=== PATIENT | female | born 1975 | race Caucasian/White ===

== ENCOUNTER → 2016-05-30 | Outpatient (REF) | payer OTHER | LOC: M LAB REF 12:21 | PROVIDERS: ATTEND Physician Assistant | DX: J02.9 Acute pharyngitis, unspecified (principal) ==

== ENCOUNTER → 2016-08-25 | Outpatient (REF) | payer OTHER ==
[2016-08-25 17:55] LABS: AMYLASE 28 U/L (25-115)
[2016-08-25 18:07] LABS: IMMUNOGLOBULIN A < 7.8 MG/DL (70-400)
[2016-08-30 00:06] LABS: ENDOMYSIAL ABY IgA Negative (Negative)
== END ==
LOC: M LAB REF 16:33
PROVIDERS: ATTEND Nurse Practitioner Family
DX: R19.7 Diarrhea, unspecified (principal)

== ENCOUNTER 2017-01-30 09:14 | Day surgery (SDC) | payer BC, OTHER ==
[~2017-01-30] VITALS: Ht 170.2 cm; Wt 93.9 kg
[~2017-01-30 09:14] MED LIST: BUPR150T3 PO; VITA1CAP40 PO
[2017-01-30] MEDS ORDERED: NS 1,000 ML IV ONE (09:30)
--- NOTE | 2017-01-30 10:52 | ROOR ---
Patient Name: Dina Tierney Procedure Date: 01/30/2017 10:22 AM Date of : 1975 Age: 41 Room: [facility] Gender: Female Note Status: Finalized Procedure: Total Colonoscopy to Cecum + ileoscopy Indications: Rectal bleeding, Change in bowel habits Providers: Noe Villalta MD Referring MD: HARRY PALM NP Requesting Provider: Medicines: Monitored Anesthesia Care Complications: No immediate complications. Procedure: Pre-Anesthesia Assessment: - The heart rate, respiratory rate, oxygen saturations, blood pressure, adequacy of pulmonary ventilation, and response to care were monitored throughout the procedure. The Colonoscope was introduced through the anus and advanced to the cecum, identified by appendiceal orifice and ileocecal valve. The colonoscopy was performed without difficulty. The patient tolerated the procedure well. The quality of the bowel preparation was excellent. Findings: The perianal and digital rectal examinations were normal. Non-bleeding internal hemorrhoids were found during retroflexion. The hemorrhoids were small and Grade I (internal hemorrhoids that do not prolapse). No other significant abnormalities were identified in a careful examination of the remainder of the colon. The exam was otherwise without abnormality on direct and retroflexion views. The terminal ileum appeared normal. Impression: - Non-bleeding internal hemorrhoids. - The examination was otherwise normal on direct and retroflexion views. - The examined portion of the ileum was normal. - No specimens collected. - The exam was otherwise normal to the cecum. Recommendation: - Patient has a contact number available for emergencies. The signs and symptoms of potential delayed complications were discussed with the patient. Return to normal activities tomorrow. Written discharge instructions were provided to the patient. - High fiber diet. - Discharge patient to home. - Continue present medications. - Repeat colonoscopy in 10 years for screening purposes. - Return to referring physician. - The findings and recommendations were discussed with the patient's family. Noe Villalta MD Noe Villalta MD 01/30/2017 10:51:52 AM This report has been signed electronically. Number of Addenda: 0 Note Initiated On: 01/30/2017 10:22 AM Estimated Blood Loss: Estimated blood loss: none.
[2017-01-30] MEDS ORDERED: PROPOFOL 200 MG/20 ML VIAL As Ordered ONE ×2 (10:56→10:57)
[2017-01-30] MEDS ORDERED: LIDOCAINE 2% INJ 100 MG/5 ML SDV (FOR ANES.) As Ordered ONE (10:57)
[2017-01-30 11:10] VITALS: BP 121/75
== END 2017-01-30 11:15 | disposition home or self-care (01) ==
LOC: M OPP 09:14 → EDSTATUS 10:30 → M OPP 11:15
PROVIDERS: ATTEND Internal Medicine Gastroenterology
DX: R19.4 Change in bowel habit (principal); K64.0 First degree hemorrhoids; K62.5 Hemorrhage of anus and rectum; Z88.2 Allergy status to sulfonamides; Z79.899 Other long term (current) drug therapy

== ENCOUNTER → 2018-06-20 | Outpatient (REF) | payer OTHER ==
[~2018-06-20] MED LIST changes: -VITA1CAP40 PO; +VITA50005 PO
== END ==
LOC: M LAB REF 19:35
PROVIDERS: ATTEND Physician Assistant Medical
DX: R07.0 Pain in throat (principal)

== ENCOUNTER → 2018-06-20 | Outpatient (REF) | payer BC, OTHER ==
[2018-06-20 20:15] LABS: MONO REFLEX EBV COMP NEGATIVE (NEGATIVE)
[2018-06-20 20:18] LABS: BASO % 0.5 % (0.0-1.0); EOS # 0.2 10^3/uL (0.0-0.50); EOS % 2.9 % (0.0-3.0); HEMATOCRIT 35.4 % (36.0-47.0); HEMOGLOBIN 11.4 g/dl (12.0-15.5); LYMPH # 2.3 10^3/uL (1.5-4.5); LYMPH % 31.4 % (24.0-44.0); MEAN CORPUSCULAR HEMOGLOBIN 28.7 pg (27.0-33.0); MEAN CORPUSCULAR HGB CONC 32.2 g/dl (32.0-36.5); MEAN CORPUSCULAR VOLUME 89.2 fl (80.0-96.0); MONO # 0.5 10^3/uL (0.0-0.8); MONO % 7.1 % (0.0-5.0); NEUTROPHILS # 4.2 10^3/uL (1.8-7.7); NEUTROPHILS % 57.8 % (36.0-66.0); PLATELET COUNT, AUTOMATED 276 10^3/uL (150-450); RED BLOOD COUNT 3.97 10^6/uL (4.00-5.40); WHITE BLOOD COUNT 7.3 10^3/uL (4.0-10.0)
[2018-06-23 00:06] LABS: EBV AB TO NUCLEAR ANTIGEN <18.0 U/mL (0.0-17.9); EBV VIRAL CAPSID AG IgM <36.0 U/mL (0.0-35.9)
== END ==
LOC: M LABDRWAD 19:30
PROVIDERS: ATTEND Physician Assistant Medical
DX: R07.0 Pain in throat (principal)

== ENCOUNTER 2019-04-20 21:52 | Observation (INO) | payer BC, OTHER ==
[~2019-04-20] VITALS: Ht 170.2 cm; Wt 105.5 kg
[2019-04-20] MEDS: FAMOTIDINE 20 MG TAB PO SCH (21:00)
[2019-04-20] MEDS ORDERED: IBUP-1022 PO (22:10)
[2019-04-20] MEDS ORDERED: ESCI10TA2 PO (22:10)
[2019-04-20] MEDS ORDERED: MORPHINE 4 MG/ML 1ML VIAL/SYRINGE (J2270) IV ONE (22:45)
[2019-04-20] MEDS ORDERED: NS 1,000 ML IV SCH (22:52)
[2019-04-20] MEDS ORDERED: METOCLOPRAMIDE INJ 10MG/2ML VIAL (J2765) IV ONE (23:00)
[2019-04-20] MEDS ORDERED: ASPIRIN 325 MG TAB PO ONE (23:00)
[2019-04-20 23:06] LABS: BASO # 0.1 10^3/uL (0.0-0.2); BASO % 0.6 % (0.0-1.0); EOS # 0.2 10^3/uL (0.0-0.5); HEMATOCRIT 35.3 % (36.0-47.0); HEMOGLOBIN 11.2 g/dl (12.0-15.5); LYMPH % 31.9 % (24.0-44.0); MEAN CORPUSCULAR HEMOGLOBIN 28.4 pg (27.0-33.0); MEAN CORPUSCULAR HGB CONC 31.7 g/dl (32.0-36.5); MEAN CORPUSCULAR VOLUME 89.6 fl (80.0-96.0); MONO # 0.5 10^3/uL (0.0-0.8); MONO % 5.7 % (0.0-5.0); NEUTROPHILS # 5.6 10^3/uL (1.5-8.5); NEUTROPHILS % 59.6 % (36.0-66.0); PLATELET COUNT, AUTOMATED 325 10^3/uL (150-450); RED BLOOD COUNT 3.94 10^6/uL (4.00-5.40); WHITE BLOOD COUNT 9.4 10^3/uL (4.0-10.0)
--- NOTE | 2019-04-20 23:16 | REPVR ---
PROCEDURE INFORMATION: Exam: CT Head Without Contrast Exam date and time: 04/20/2019 11:00 PM Age: 43 years old Clinical indication: Altered mental status/memory loss TECHNIQUE: Imaging protocol: Computed tomography of the head without contrast. Radiation optimization: All CT scans at this facility use at least one of these dose optimization techniques: automated exposure control; mA and/or kV adjustment per patient size (includes targeted exams where dose is matched to clinical indication); or iterative reconstruction. COMPARISON: No relevant prior studies available. FINDINGS: Brain: Normal. No hemorrhage. Unremarkable white matter. No mass effect. Ventricles: Normal. No ventriculomegaly. Bones/joints: Unremarkable. No acute fracture. Sinuses: Visualized sinuses are unremarkable. No fluid levels. Mastoid air cells: Visualized mastoid air cells are well aerated. Soft tissues: Unremarkable. IMPRESSION: No acute intracranial abnormality. Electronically signed by: Lamont Hollingsworth On 04/20/2019 23:15:59 PM
[2019-04-20 23:22] LABS: ACETAMINOPHEN LEVEL < 2.0 UG/ML (10.0-30.0); ALT/SGPT 13 U/L (12-78); BILIRUBIN,DIRECT 0.1 MG/DL (0.0-0.2); BILIRUBIN,TOTAL 0.1 MG/DL (0.2-1.0); BLOOD UREA NITROGEN 18 MG/DL (7-18); CALCIUM LEVEL 8.5 MG/DL (8.5-10.1); CARBON DIOXIDE LEVEL 28 MEQ/L (21-32); CHLORIDE LEVEL 103 MEQ/L (98-107); CK-MB VALUE MASS < 1.0 NG/ML (<3.6); CPK CREATINE PHOSPHOKINASE 94 U/L (26-192); CREATININE FOR GFR 0.82 MG/DL (0.55-1.30); ETHYL ALCOHOL (ETHANOL) < 0.003 % (0.000-0.010); GLOMERULAR FILTRATION RATE > 60.0 (>58); GLUCOSE, FASTING 95 MG/DL (70-100); MB/CK RELATIVE INDEX 1.06 (< OR =4); POTASSIUM SERUM 3.6 MEQ/L (3.5-5.1); SALICYLATE LEVEL < 1.7 MG/DL (5.0-30.0); SODIUM LEVEL 138 MEQ/L (136-145); TOTAL PROTEIN 7.5 GM/DL (6.4-8.2); TROPONIN I < 0.02 NG/ML (< 0.10)
[2019-04-21] MEDS ORDERED: FAMO20TA4 PO (00:18)
[2019-04-21] MEDS ORDERED: ASPIRIN 325 MG TAB PO ONE (01:00)
[2019-04-21] MEDS ORDERED: ACETAMINOPHEN TAB 650MG DOSE (2X325MG) PO PRN (01:00)
[2019-04-21] MEDS ORDERED: IBUPROFEN 600 MG TAB PO PRN (01:00)
--- NOTE | 2019-04-21 01:16 | HPEPDOC ---
[facility] Medical History & Physical Date of Admission Apr 21, 2019 Date of Service: Apr 21, 2019 Primary Care Physician: Akanksha Bazzi Attending Physician: ANG SAWYER MD History and Physical CHIEF COMPLAINT: Intermittent numbness in arm and leg HISTORY OF PRESENT ILLNESS: Dina Tierney is a 43-year-old female who presents today after 2 transient episodes of numbness in her extremities. The patient reports that the first episode occurred around 10:30 or 11 in the morning with numbness and heaviness of her left arm. The patient notes that this feeling lasted about 15-30 minutes and resolved on its own. She denies any additional symptoms during this episode. The patient then had a second episode of numbness and heaviness around 8 to 8:30 PM which occurred in her left leg. Patient states again this episode lasted 15-30 minutes and resolved on its own. Patient denies any prior episodes of numbness or heaviness similar to this and denies any episodes in the right side of her body. The patient denies any trauma to her neck, lower back, her head. The patient has a history of migraines with aura. Since she has had about 4 or 5 in the past month. She states these episodes typically begin with blurry vision. She states she takes 600 mg of ibuprofen and her migraine resolves with this. She has not taken any additional migraine medication. PAST MEDICAL HISTORY: 1. Migraines with aura 2. Unspecified mood disorder. 3. GERD PAST SURGICAL HISTORY: None SOCIAL HISTORY: Lives at home with and children. Never smoker. Occasional alcohol use. Denies any history of IV/illicit drug use. FAMILY HISTORY: Mother: DM, Crohn's disease ALLERGIES: Please see below. REVIEW OF SYSTEMS: CONSTITUTIONAL: Denies fevers, chills, night sweats, fatigue, unexpected change in weight. HEENT: Endorses change in vision with migraine. Denies change in hearing. CARDIOVASCULAR: Denies chest pain, palpitations, shortness of breath, lightheadedness. RESPIRATORY: Denies dyspnea, cough, wheezing. GASTROINTESTINAL: Denies nausea, vomiting, abdominal pain, diarrhea, constipatio n, blood in stool. GENITOURINARY: Denies dysuria, urinary frequency, urinary urgency. SKIN: Denies rash, lesions. MUSCULOSKELETAL: Denies joint pain or muscle aches. NEUROLOGICAL: Endorses headache with migraine. Denies dizziness, weakness. PSYCHIATRIC: Denies change in mood. HOME MEDICATIONS: Please see below. PHYSICAL EXAMINATION: VITAL SIGNS: See below GENERAL: Alert, comfortable, in no acute distress HEENT: Normocephalic, atraumatic, PERRLA, EOMI, moist mucous membranes NECK: Supple, trachea midline, no lymphadenopathy, no JVD appreciated CARDIOVASCULAR: Regular rate and rhythm, normal S1 and S2. No murmurs, rubs, or gallops RESPIRATORY: Clear to auscultation bilaterally with equal air entry bilaterally. No wheezing, rhonchi, or rales. ABDOMEN: Soft, nontender, nondistended, bowel sounds present, no masses or hepatosplenomegaly appreciated EXTREMITIES: No cyanosis or edema. Pulses 2+/4 in bilateral upper and lower extremities SKIN: [place], warm, dry NEUROLOGIC: Alert and oriented 3 to person, place and time. Cranial nerves 2-12 grossly intact. Sensation intact bilaterally in upper and lower extremities. Strength 5 out of 5 in bilateral upper and lower extremities. No gross focal deficits appreciated PSYCHIATRIC: Mood and affect appropriate LABORATORY DATA: See below. IMAGING: Head CT: No acute intracranial abnormality. Chest x-ray: No radiologist report available for review. MICROBIOLOGY: Please see below. ASSESSMENT: 43-year-old female with past history significant for migraines oral, presents with 2 episodes of nonsustained numbness in her left extremities, concerning for TIA versus complex migraine. PLAN: 1. Transient numbness and left-sided extremities secondary to TIA versus complex migraine versus anxiety CT head negative, ordered MRI brain, MRA contrast, carotid artery duplex No history of arrhythmia or cardiac disease. Monitor on telemetry. Ec hocardiogram ordered. Given 325 mg aspirin in the ED, continue 1 mg aspirin daily. Start 40 mg ator vastatin daily. Check lipid profile and hemoglobin A1c. No dysphagia, weakness, or other deficits noted on physical exam. No indication for PT/OT/ST evaluations at this time. Neurochecks every 4 hours 2. Elevated TSH No history of hypothyroidism, check free T4 level 3. Migraines with aura Continue ibuprofen as needed Symptoms could be explained by complex migraine. 4. Unspecified mood disorder. Continue home Lexapro 5. GERD. Continue home Pepcid DVT prophylaxis: Heparin. CODE STATUS: Full code. Disposition: Admitted for observation to med/surg with telemetry I personally saw and examined patient. I have reviewed and agree with residents findings including all diagnostic interpretations, and treatment plans as written. I was present for the ureña portions of any procedures performed and the inclusive time noted in any critical care times treatment. Time spent 35 minutes, greater than 50% of the time spent on education. Vital Signs Vital Signs Date Time Temp Pulse Resp B/P (MAP) Pulse Ox O2 Delivery O2 Flow Rate FiO2 04/21/19 00:30 70 140/64 (89) 98 Room Air 04/20/19 21:54 96.6 18 Laboratory Data Labs 24H Laboratory Tests 2 04/20/19 22:18: Immature Granulocyte % (Auto) 0.2, Neutrophils (%) (Auto) 59.6, Lymphocytes (%) (Auto) 31.9, Monocytes (%) (Auto) 5.7H, Eosinophils (%) (Auto) 2.0, Basophils (%) (Auto) 0.6, Neutrophils # (Auto) 5.6, Lymphocytes # (Auto) 3.0, Monocytes # (Auto) 0.5, Eosinophils # (Auto) 0.2, Basophils # (Auto) 0.1, Nucleated Red Blood Cells % (auto) 0.0, Anion Gap 7L, Glomerular Filtration Rate > 60.0, Calcium Level 8.5, Total Bilirubin 0.1L, Direct Bilirubin 0.1, Aspartate Amino Transf (AST/SGOT) 11, Alanine Aminotransferase (ALT/SGPT) 13, Alkaline Phosphatase 97, Total Creatine Kinase 94, Creatine Kinase MB < 1.0, Creatine Kinase MB Relative Index 1.06, Troponin I < 0.02, Total Protein 7.5, Albumin 4.0, Albumin/Globulin Ratio 1.14, Thyroid Stimulating Hormone (TSH) 3.930H, Salicylates Level < 1.7L, Acetaminophen Level < 2.0L, Ethyl Alcohol Level < 0.003 CBC/BMP Laboratory Tests 04/20/19 22:18 Home Medications Scheduled Escitalopram Oxalate (Escitalopram Oxalate) 10 Mg Tablet, 10 MG PO DAILY Famotidine (Famotidine) 20 Mg Tablet, 20 MG PO QHS Scheduled PRN Ibuprofen (Ibuprofen) 600 Mg Tablet, 600 MG PO TID PRN for HEADACHE Allergies Coded Allergies: Sulfa (Sulfonamide Antibiotics) (Verified Allergy, Unknown, rash, 04/20/19) A-FIB/CHADSVASC A-FIB History Current/History of A-Fib/PAF?: No MOVSESIAN,MILLI D.O. Apr 21, 2019 01:16 ANG SAWYER MD Apr 21, 2019 06:22
--- NOTE | 2019-04-21 01:51 | REPVR ---
PROCEDURE INFORMATION: Exam: US Duplex Bilateral Extracranial Arteries Exam date and time: 04/21/2019 1:42 AM Age: 43 years old Clinical indication: Numbness / parasthesia and other: TIA; Left TECHNIQUE: Imaging protocol: Real-time Duplex ultrasound scan of the bilateral carotid and vertebral arteries combining art scale, color Doppler and spectral waveform analysis. Bilateral exam. COMPARISON: CT Head without contrast 04/20/2019 10:57 PM FINDINGS: Right common carotid artery: Peak systolic velocity of the right common carotid artery is 107 cm/s. Right internal carotid artery: Peak systolic velocity of the right internal carotid artery is 72 cm/s. Right ICA/CCA ratio: Right ICA CCA ratio is 0.67. Right external carotid artery: No stenosis in the origin. Right vertebral artery: Unremarkable. Antegrade flow Left common carotid artery: Peak systolic velocity of the left common carotid artery is 64 cm/s. Left internal carotid artery: Peak systolic velocity of the left internal carotid artery is 78 cm/s. Left ICA/CCA ratio: Left ICA CCA ratio is 1.2. Left external carotid artery: No stenosis in the origin. Left vertebral artery: Unremarkable. Antegrade flow. IMPRESSION: No hemodynamically significant stenosis. REFERENCE: Carotid Stenosis Reference using SRU criteria: Mild: less than 50% stenosis. ICA PSV is less than 125 cm/second and plaque or intimal thickening is visible. Moderate: 50-69% stenosis. ICA PSV is 125 to 230 cm/second and plaque is visible. Severe: 70-94% stenosis. ICA PSV is more than 230 cm/second and visible plaque and lumen narrowing are seen. Near occlusion: 95-99% stenosis. ICA PSV is variable and significant plaque and luminal narrowing are seen. Occluded: 100% stenosis. No flow identified. Electronically signed by: Lamont Hollingsworth On 04/21/2019 01:51:02 AM
[2019-04-21 02:46] VITALS: BP 137/79
[2019-04-21 06:00] VITALS: BP 118/79
[2019-04-21] MEDS: HEPARIN SOD (PORCINE) 5000 UNITS/ML VIAL SC SCH ×2 (06:00→17:25)
[2019-04-21 06:41] LABS: HEMATOCRIT 32.9 % (36.0-47.0); HEMOGLOBIN 10.5 g/dl (12.0-15.5); MEAN CORPUSCULAR HEMOGLOBIN 28.5 pg (27.0-33.0); MEAN CORPUSCULAR HGB CONC 31.9 g/dl (32.0-36.5); MEAN CORPUSCULAR VOLUME 89.4 fl (80.0-96.0); PLATELET COUNT, AUTOMATED 254 10^3/uL (150-450); RED BLOOD COUNT 3.68 10^6/uL (4.00-5.40); WHITE BLOOD COUNT 5.6 10^3/uL (4.0-10.0)
[2019-04-21 06:54] LABS: HEMOGLOBIN A1c 5.8 %
[2019-04-21 07:02] LABS: BLOOD UREA NITROGEN 11 MG/DL (7-18); CALCIUM LEVEL 7.8 MG/DL (8.5-10.1); CARBON DIOXIDE LEVEL 26 MEQ/L (21-32); CHLORIDE LEVEL 106 MEQ/L (98-107); CHOLESTEROL LEVEL 172 MG/DL (<200); CREATININE FOR GFR 0.64 MG/DL (0.55-1.30); GLOMERULAR FILTRATION RATE > 60.0 (>58); GLUCOSE, FASTING 87 MG/DL (70-100); HDL CHOLESTEROL 43 MG/DL (>40); LDL CHOLESTEROL 115 MG/DL (<100); NON-HDL-C 129 MG/DL; POTASSIUM SERUM 3.6 MEQ/L (3.5-5.1); SODIUM LEVEL 138 MEQ/L (136-145); TRIGLYCERIDES LEVEL 71 MG/DL (<150)
[2019-04-21] MEDS: ATORVASTATIN 20 MG TAB PO SCH (09:21)
[2019-04-21] MEDS: ESCITALOPRAM OXALATE 10 MG TAB (LEXAPRO) PO SCH (09:21)
--- NOTE | 2019-04-21 10:04 | REP ---
CHEST, SINGLE VIEW: There is no evidence of acute infiltrate. No pleural effusion is seen. The heart is normal in size. The mediastinal silhouette is unremarkable. The visualized osseous structures are intact. IMPRESSION: No acute pulmonary disease. Electronically Signed by Americo Vargas MD 04/21/2019 10:32 A
[2019-04-21 14:00] VITALS: BP 120/79
--- NOTE | 2019-04-21 14:31 | REP ---
MRI BRAIN WITHOUT CONTRAST: TECHNIQUE: Multiple sequences obtained in the axial and sagittal planes. Ventricles are normal in size and position. There is no midline shift or mass effect. Vargas-white differentiation is well maintained. No abnormal signal is seen in the brain, brainstem or cerebellum. There is no evidence of acute ischemia. No abnormal signal is seen on the ADC or DWI images. Seventh and eighth cranial nerve complexes appear unremarkable. Globes are intact. Visualized paranasal sinuses demonstrate no abnormal signal. IMPRESSION: Negative noncontrast MRI of the brain. Electronically Signed by Americo Vargas MD 04/22/2019 05:52 P
[2019-04-21 18:00] VITALS: BP 142/87
[2019-04-21] MEDS: FAMOTIDINE 20 MG TAB PO SCH (19:56)
--- NOTE | 2019-04-21 20:39 | ECGEPIP ---
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
[2019-04-21 22:00] VITALS: BP 121/79
[2019-04-22 02:00] VITALS: BP 128/80
[2019-04-22] MEDS: HEPARIN SOD (PORCINE) 5000 UNITS/ML VIAL SC SCH (05:06)
[2019-04-22 06:00] VITALS: BP 120/76
--- NOTE | 2019-04-22 07:54 | REP ---
MRA BRAIN: MRA brain is performed utilizing 3D time of flight imaging and MIP reconstruction images. Intracranial carotid vessels are patent and symmetrical in appearance. Vertebral basilar system is patent with no stenosis. Anterior, middle, and posterior cerebral arteries are patent and symmetrical. There are patent anterior communicating arteries. There are probably tiny posterior communicating arteries present. No aneurysm or AVN was seen. IMPRESSION: Unremarkable MRA brain as discussed above. Electronically Signed by Americo Vargas MD 04/22/2019 06:04 P
[2019-04-22] MEDS ORDERED: ASPIRIN 81 MG ENTERIC TAB PO SCH (09:00)
[2019-04-22] MEDS: ATORVASTATIN 20 MG TAB PO SCH (09:31)
[2019-04-22] MEDS: ESCITALOPRAM OXALATE 10 MG TAB (LEXAPRO) PO SCH (09:31)
[2019-04-22 10:00] VITALS: BP 160/90
[2019-04-22] MEDS ORDERED: ATOR1TAB21 PO (10:40)
--- NOTE | 2019-04-22 10:43 | DS.PDOC ---
Discharge Summary General Date of Admission Apr 20, 2019 at 21:53 Date of Discharge 04/22/2019 Discharge Summary PROCEDURES PERFORMED DURING STAY: none ADMITTING DIAGNOSES: 1. numbness LUE/LLE 2. hx migraines DISCHARGE DIAGNOSES: 1. numbness LUE/LLE 2. hx migraines COMPLICATIONS/CHIEF COMPLAINT: LUE/LLE numbness. HISTORY OF PRESENT ILLNESS: Dina Tierney is a 43-year-old female who presents today after 2 transient episodes of numbness in her extremities. The patient reports that the first episode occurred around 10:30 or 11 in the morning with numbness and heaviness of her left arm. The patient notes that this feeling lasted about 15-30 minutes and resolved on its own. She denies any additional symptoms during this episode. The patient then had a second episode of numbness and heaviness around 8 to 8:30 PM which occurred in her left leg. Patient states again this episode lasted 15- 30 minutes and resolved on its own. Patient denies any prior episodes of numbness or heaviness similar to this and denies any episodes in the right side of her body. The patient denies any trauma to her neck, lower back, her head. The patient has a history of migraines with aura. Since she has had about 4 or 5 in the past month. She states these episodes typically begin with blurry vision. She states she takes 600 mg of ibuprofen and her migraine resolves with this. She has not taken any additional migraine medication. HOSPITAL COURSE: Patient was admitted to the hospital and treated for the following conditions: 1. Transient numbness and left-sided extremities secondary to TIA versus complex migraine versus anxiety CT head negative. MRI brain, MRA head/neck, carotid US, cardiac ECHO done with no significant findings. patient symptoms had resolved by the time she presented to the ED. Has not had a recurrence of her symptoms which are most likely due to her migraines. - patient advised to continue statin based on lipid panel, outpatient follow up with her PCP. 2. Elevated TSH outpatient follow up with PCP. 3. Migraines with aura - Continue ibuprofen as needed. - outpatient follow up. 4. Unspecified mood disorder. Continue home Lexapro. 5. GERD. Continue home Pepcid DISCHARGE MEDICATIONS: Please see below. ALLERGIES: Please see below. PHYSICAL EXAMINATION ON DISCHARGE: VITAL SIGNS: Please see below. GENERAL: awake, NAD, alert HEENT: NCAT, anicteric sclera, PERRLA NECK: supple, no JVD, no thyromegaly CARDIOVASCULAR EXAMINATION: NS1S2, regular, no murmurs, rubs RESPIRATORY EXAMINATION: CTA b/l, no wheezes, rales, rhonchi ABDOMINAL EXAMINATION: NT/ND, positive bowel sounds x 4, no organomegaly EXTREMITIES: no cyanosis, clubbing, edema SKIN: warm, no rashes NEUROLOGICAL EXAMINATION: AAO x 3, motor 5/5, sensory grossly intact PSYCHIATRIC EXAMINATION: calm, cooperative, normal mood/affect LABORATORY DATA: Please see below. IMAGING: CT head: No acute intracranial abnormality. MRI brain: negative for acute findings. MRA head/neck: unremarkable with no significant findings. carotid US: no hemodynamically significant stenosis. PROGNOSIS: good ACTIVITY: as tolerated DIET: low cholesterol diet DISPOSITION: home DISCHARGE INSTRUCTIONS: 1. please follow up with your PCP within 1-2 weeks. ITEMS TO FOLLOWUP ON ON OUTPATIENT: 1. none DISCHARGE CONDITION: stable TIME SPENT ON DISCHARGE: Greater than 30 minutes. Vital Signs/I&Os Vital Signs Date Time Temp Pulse Resp B/P (MAP) Pulse Ox O2 Delivery O2 Flow Rate FiO2 04/22/19 10:00 97.6 70 17 160/90 (113) 95 Room Air I&O- Last 24 Hours up to 6 AM 04/22/19 06:00 Intake Total 2050 ml Output Total 700 ml Balance 1350 ml Discharge Medications Scheduled Atorvastatin Calcium (Atorvastatin Calcium) 20 Mg Tablet, 20 MG PO DAILY Take 1 TAB by mouth daily Escitalopram Oxalate (Escitalopram Oxalate) 10 Mg Tablet, 10 MG PO DAILY, (Reported) Famotidine (Famotidine) 20 Mg Tablet, 20 MG PO QHS, (Reported) Scheduled PRN Ibuprofen (Ibuprofen) 600 Mg Tablet, 600 MG PO TID PRN for HEADACHE, (Reported) Allergies Coded Allergies: Sulfa (Sulfonamide Antibiotics) (Verified Allergy, Unknown, rash, 04/20/19) MICHELLE LOYA MD Apr 22, 2019 10:42
--- NOTE | 2019-04-23 20:39 | ECHO ---
DATE OF PROCEDURE: 04/22/2019 Date of : 1975 Age: 43 Gender: Female Height: 67 inches Weight: 229 pounds Body surface area: 2.14 meters squared Inpatient: [address] [place] [address], room 4212. REFERRING PHYSICIAN: Marilia Farrell DO INDICATION: Transient ischemic attack (TIA) - cardiac source of embolic material, questionable. MEASUREMENTS: 2D Measurements: RV: 3.7 cm LV: 4.8 cm Septum: 0.9 cm Posterior wall: 0.9 cm Aortic root: 3.0 cm LA: 3.7 cm LVEF: 65% Doppler Measurements: AV: 1.1 meters per second LVOT: 0.8 meters per second LVOT diameter: 1.9 cm MV-E: 63, A: 58, EA ratio: 1.1 Early mitral deceleration time: 155 milliseconds E prime medial: 6.5, A prime medial: 8, E prime lateral: 12.6. PV: 0.8 meters per second Pulmonary artery acceleration time: 150 milliseconds RVSP: 22 mmHg IVC: 1.8 cm COMMENTS: Sinus bradycardia without intraventricular conduction disturbance. M-mode and two-dimensional echocardiography was performed with pulsed, continuous wave, color flow and tissue Doppler studies. Normal left ventricular size, wall thickness and wall motion. Normal left atrial size and Doppler assessment of left ventricular (LV) diastolic function and estimated mean left atrial pressure. Normal right heart chamber sizes and motion and estimated pulmonary arterial pressure. Normal inferior vena cava (IVC) size and collapse against an elevated central venous pressure. Normal appearing and functioning valvular structures. No evidence of pedunculated mass or vegetation. Normal aortic root size. No apparent intracardiac mass or pericardial effusion. No evidence of interatrial septal abnormality or shunting.
== END 2019-04-22 11:25 | disposition home or self-care (01) ==
LOC: M ED 21:52 → M ED INP 21:53 → ENRESERV 04-21 01:40 → M MSPAV 04-21 02:45
PROVIDERS: ADMIT Family Medicine; ATTEND Internal Medicine
DX: R20.0 Anesthesia of skin (principal); G43.109 Migraine with aura, not intractable, without status migrainosus; R94.6 Abnormal results of thyroid function studies; R00.1 Bradycardia, unspecified; F39 Unspecified mood [affective] disorder; K21.9 Gastro-esophageal reflux disease without esophagitis; Z79.899 Other long term (current) drug therapy; Z88.2 Allergy status to sulfonamides
CPT/HCPCS: 36415; 70450; 70544; 70551; 71045; 80048; 80061; 80076; 82550; 82553; 83036; 84439; 84443; 84484; 85025; 85027; 93005; 93041; 93306; 93880; 94760; 96361; 96374; 99285; G0480; J2765

== ENCOUNTER 2021-01-07 10:55 | Emergency (ER) | payer BC, OTHER ==
[~2021-01-07] VITALS: Ht 170.2 cm; Wt 85.9 kg
[~2021-01-07 10:55] MED LIST changes: +ATOR1TAB21 PO; +BUPR150T12 PO; -BUPR150T3 PO; +ESCI10TA16 PO; +FAMO20TA4 PO; +IBUP-1022 PO
[2021-01-07] MEDS ORDERED: PHEN30CA2 PO (11:15)
--- NOTE | 2021-01-07 11:34 | REP ---
INDICATION: CHEST PAIN. COMPARISON: 04/20/2019 the latest prior also portable TECHNIQUE: Portable FINDINGS: The technique utilized in obtaining the radiograph has magnified the cardiac silhouette and accentuated the interstitial markings. The superior mediastinal structures are midline. The cardiac silhouette is unremarkable in size, shape, and position. The diaphragmatic surfaces of the lungs are regular, and the costophrenic angles are clear. The pulmonary hawk are clear. The imaged osseous structures are intact. IMPRESSION: There is no acute cardiopulmonary disease. <Electronically signed by Angus Bruno > 01/07/21 [id number]
[2021-01-07 11:40] LABS: BASO % 0.4 % (0.0-1.0); EOS # 0.1 10^3/uL (0.0-0.5); HEMOGLOBIN 12.1 g/dl (12.0-15.5); LYMPH # 1.5 10^3/uL (1.5-5.0); LYMPH % 17.3 % (24.0-44.0); MEAN CORPUSCULAR HEMOGLOBIN 29.2 pg (27.0-33.0); MEAN CORPUSCULAR HGB CONC 32.7 g/dl (32.0-36.5); MEAN CORPUSCULAR VOLUME 89.4 fl (80.0-96.0); MONO # 0.4 10^3/uL (0.0-0.8); NEUTROPHILS # 6.3 10^3/uL (1.5-8.5); NEUTROPHILS % 75.8 % (36.0-66.0); PLATELET COUNT, AUTOMATED 297 10^3/uL (150-450); RED BLOOD COUNT 4.14 10^6/uL (4.00-5.40); WHITE BLOOD COUNT 8.4 10^3/uL (4.0-10.0)
[2021-01-07 12:09] LABS: BLOOD UREA NITROGEN 10 MG/DL (7-18); CALCIUM LEVEL 9.1 MG/DL (8.5-10.1); CARBON DIOXIDE LEVEL 28 MEQ/L (21-32); CHLORIDE LEVEL 105 MEQ/L (98-107); CK-MB VALUE MASS 2.2 NG/ML (<3.6); CPK CREATINE PHOSPHOKINASE 83 U/L (26-192); CREATININE FOR GFR 0.71 MG/DL (0.55-1.30); GLOMERULAR FILTRATION RATE > 60.0 (>58); GLUCOSE, FASTING 92 MG/DL (70-100); MB/CK RELATIVE INDEX 2.65 (< OR =4); POTASSIUM SERUM 4.2 MEQ/L (3.5-5.1); SODIUM LEVEL 138 MEQ/L (136-145); TROPONIN I 0.36 NG/ML (< 0.10)
[2021-01-07] MEDS ORDERED: NITROGLYCERIN 0.4 MG SUBL TABLET SL PRN (12:20)
[2021-01-07] MEDS ORDERED: ISOVUE-370 76% 100ML VIAL As Ordered ONE (12:35)
--- NOTE | 2021-01-07 13:32 | REP ---
INDICATION: SOB; chest pain COMPARISON: None. TECHNIQUE: CT angiography of the chest after the intravenous administration of 75 cc Isovue 370. Attention pulmonary arteries. FINDINGS: There is excellent visualization of the pulmonary arterial vasculature. No focal filling defects are present that would be considered consistent with acute pulmonary emboli. There are no pleural or pericardial effusions. There is no mediastinal or hilar adenopathy. The imaged upper abdomen and imaged osseous structures are within normal limits. Evaluation of the lung hawk shows biapical pleuroparenchymal scarring. No abnormal nodules, masses, or opacities are identified. IMPRESSION: There is biapical pleuroparenchymal scarring with no priors for comparison. Consider 3 to six-month follow-up. CT findings are otherwise within normal limits. <Electronically signed by Angus Bruno > 01/07/21 [id number]
[2021-01-07 14:35] LABS: CK-MB VALUE MASS 3.8 NG/ML (<3.6); MB/CK RELATIVE INDEX 4.18 (< OR =4); TROPONIN I 1.99 NG/ML (< 0.10)
[2021-01-07] MEDS ORDERED: HEPARIN SOD (PORCINE) 5000UNITS/ML 1ML VIAL/SYRINGE IV ONE (14:35)
[2021-01-07] MEDS ORDERED: HEPARIN DRIP 25,000 UNITS in IV 1 EA IV SCH (14:35)
[2021-01-07] MEDS ORDERED: CLOPIDOGREL 300 MG TAB (PLAVIX) PO ONE (14:35)
[2021-01-07 15:04] LABS: PARTIAL THROMBOPLASTIN TIME 26.8 SECONDS (25.9-37.0); PROTHROMBIN TIME 13.6 SECONDS (12.7-14.5)
[2021-01-07 15:40] VITALS: BP 148/85
[2021-01-07 16:11] LABS: RSV AMPLIFICATION NEGATIVE (NEGATIVE)
--- NOTE | 2021-01-07 21:37 | ECGEPIP ---
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
--- NOTE | 2021-01-07 21:43 | ECGEPIP ---
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
== END 2021-01-07 15:44 | disposition short-term general hospital (02) ==
LOC: EDBD 10:55 → M ED 10:55
DX: I21.3 ST elevation (STEMI) myocardial infarction of unspecified site (principal); Z86.73 Personal history of transient ischemic attack (TIA), and cerebral infarction without residual deficits; G43.909 Migraine, unspecified, not intractable, without status migrainosus; F41.9 Anxiety disorder, unspecified; Z88.2 Allergy status to sulfonamides
CPT/HCPCS: 36415; 71045; 71275; 80048; 82550; 82553; 84484; 85025; 85610; 85730; 87631; 93005; 93041; 94760; 99285; J1644; Q9967

== ENCOUNTER → 2021-07-21 | Outpatient (REF) | payer BC, OTHER ==
[~2021-07-21] MED LIST changes: +PHEN30CA21 PO
== END ==
LOC: M LAB REF 12:23
PROVIDERS: ATTEND Registered Nurse
DX: R20.2 Paresthesia of skin (principal)

== ENCOUNTER → 2021-12-27 | Outpatient (CLI) | payer BC, OTHER | LOC: M WHC 15:17 | PROVIDERS: ATTEND Registered Nurse | DX: Z12.31 Encounter for screening mammogram for malignant neoplasm of breast (principal) ==

== ENCOUNTER → 2022-03-18 | Outpatient (CLI) | payer BC, OTHER ==
[2022-03-18 13:33] LABS: TOTAL 25(OH) VITAMIN D 21.1 NG/ML (20.0-100.0)
[2022-03-18 13:34] LABS: THYROID STIMULATING HORMONE 1.751 uIU/ML (0.55-4.78)
[2022-03-18 13:37] LABS: RHEUMATOID FACTOR QUANT < 3.5 IU/ML (<14); VITAMIN B12 LEVEL 293 PG/ML (211-911)
[2022-03-18 13:38] LABS: FREE T4 1.16 NG/DL (0.89-1.76)
[2022-03-18 13:40] LABS: FOLATE 13.5 NG/ML (>5.4)
== END ==
LOC: M LABDRWAD 09:40
PROVIDERS: ATTEND Psychiatry & Neurology Neurology
DX: R51.9 Headache, unspecified (principal); R41.3 Other amnesia

== ENCOUNTER → 2022-10-12 | Outpatient (CLI) | payer BC, OTHER ==
[2022-10-12 15:06] LABS: BASO % 0.6 % (0.0-1.0); EOS # 0.1 10^3/uL (0.0-0.5); EOS % 2.7 % (0.0-3.0); HEMATOCRIT 34.1 % (36.0-47.0); HEMOGLOBIN 11.1 g/dl (12.0-15.5); LYMPH # 1.5 10^3/uL (1.5-5.0); LYMPH % 30.8 % (24.0-44.0); MEAN CORPUSCULAR HEMOGLOBIN 30.4 pg (27.0-33.0); MEAN CORPUSCULAR HGB CONC 32.6 g/dl (32.0-36.5); MEAN CORPUSCULAR VOLUME 93.4 fl (80.0-96.0); MONO # 0.3 10^3/uL (0.0-0.8); MONO % 6.5 % (2.0-8.0); NEUTROPHILS # 2.8 10^3/uL (1.5-8.5); NEUTROPHILS % 59.2 % (36.0-66.0); PLATELET COUNT, AUTOMATED 267 10^3/uL (150-450); RED BLOOD COUNT 3.65 10^6/uL (4.00-5.40); WHITE BLOOD COUNT 4.7 10^3/uL (4.0-10.0)
[2022-10-12 15:35] LABS: IRON (FE) 73 UG/DL (50-170); PERCENT SATURATION 22.9 % (13.2-45.0); TOTAL IRON BINDING CAPACITY 319 UG/DL (250-425)
[2022-10-12 15:37] LABS: ALBUMIN 3.7 G/DL (3.2-5.2); ALKALINE PHOSPHATASE 53 U/L (46-116); ALT/SGPT 14 U/L (7.0-40); AST/SGOT 12 U/L (<34); BILIRUBIN,TOTAL 0.4 MG/DL (0.3-1.2); BLOOD UREA NITROGEN 14 MG/DL (9-23); CALCIUM LEVEL 8.7 MG/DL (8.5-10.1); CARBON DIOXIDE LEVEL 27 MMOL/L (20-31); CHLORIDE LEVEL 105 MMOL/L (98-107); CREATININE FOR GFR 0.64 MG/DL (0.55-1.30); GLOMERULAR FILTRATION RATE > 60.0 (>58); GLUCOSE, FASTING 87 MG/DL (60-100); POTASSIUM SERUM 4.2 MMOL/L (3.5-5.1); SODIUM LEVEL 137 MMOL/L (136-145); TOTAL PROTEIN 6.7 G/DL (5.7-8.2)
[2022-10-12 15:39] LABS: FERRITIN 15.8 NG/ML (7.3-270.7); FOLATE 17.3 NG/ML (>5.4)
[2022-10-12 15:41] LABS: VITAMIN B12 LEVEL 517 PG/ML (211-911)
[2022-10-17 23:07] LABS: ANTI-PARIETAL CELL ANTIBODY 1.1 Units (0.0-20.0); INTRINSIC FACTOR ANTIBODY 1.2 AU/mL (0.0-1.1); VITAMIN B6,PYRIDOXAL PHOSPHATE 10.6 ug/L (3.4-65.2); VITAMIN E(ALPHA TOCOPHEROL) 10.8 mg/L (7.0-25.1); VITAMIN E(GAMMA TOCOPHEROL) 0.9 mg/L (0.5-5.5)
== END ==
LOC: M LABDRWAD 11:36
PROVIDERS: ATTEND Psychiatry & Neurology Neurology
DX: D64.9 Anemia, unspecified (principal); E53.8 Deficiency of other specified B group vitamins; E55.9 Vitamin D deficiency, unspecified; E61.1 Iron deficiency

== ENCOUNTER → 2022-12-28 | Outpatient (CLI) | payer BC, OTHER | LOC: M WHC 08:42 | PROVIDERS: ATTEND Nurse Practitioner Family | DX: Z12.31 Encounter for screening mammogram for malignant neoplasm of breast (principal) ==

== ENCOUNTER → 2023-03-22 | Outpatient (REF) | payer BC, OTHER | LOC: M SFHCWAGY 15:35 | PROVIDERS: ATTEND Nurse Practitioner Family | DX: Z12.4 Encounter for screening for malignant neoplasm of cervix (principal) | CPT/HCPCS: 87624; G0123 ==

== ENCOUNTER → 2024-04-24 | Outpatient (CLI) | payer BC | LOC: M WHC 09:56 | PROVIDERS: ATTEND Nurse Practitioner Family | DX: Z12.31 Encounter for screening mammogram for malignant neoplasm of breast (principal); N63.21 Unspecified lump in the left breast, upper outer quadrant ==

== ENCOUNTER → 2024-05-08 | Outpatient (CLI) | payer BC | LOC: M WHC 07:58 | PROVIDERS: ATTEND Nurse Practitioner Family | DX: R92.8 Other abnormal and inconclusive findings on diagnostic imaging of breast (principal); N60.02 Solitary cyst of left breast ==

== ENCOUNTER → 2024-11-15 | Outpatient (CLI) | payer BC ==
[2024-11-15 13:27] LABS: BASO # 0.1 10^3/uL (0.0-0.2); BASO % 0.8 % (0.0-1.0); EOS # 0.3 10^3/uL (0.0-0.5); EOS % 4.5 % (0.0-3.0); LYMPH # 1.9 10^3/uL (1.5-5.0); LYMPH % 30.8 % (24.0-44.0); MONO # 0.4 10^3/uL (0.0-0.8); MONO % 7.0 % (2.0-8.0); NEUTROPHILS # 3.4 10^3/uL (1.5-8.5); NEUTROPHILS % 56.7 % (36.0-66.0); PLATELET COUNT, AUTOMATED 284 10^3/uL (150-450)
[2024-11-15 14:18] LABS: ALT/SGPT 13 U/L (7.0-40); AST/SGOT 15 U/L (<34); CALCIUM LEVEL 9.2 MG/DL (8.5-10.1); CARBON DIOXIDE LEVEL 27 MMOL/L (20-31); CHLORIDE LEVEL 103 MMOL/L (98-107); CREATININE FOR GFR 0.67 MG/DL (0.55-1.30); GLOMERULAR FILTRATION RATE > 90.0 (>58); POTASSIUM SERUM 4.4 MMOL/L (3.5-5.1); SODIUM LEVEL 138 MMOL/L (136-145); TOTAL 25(OH) VITAMIN D 40.6 NG/ML (20.0-100.0); VITAMIN B12 LEVEL 332 PG/ML (211-911)
== END ==
LOC: M LABDRWAD 10:21
PROVIDERS: ATTEND Psychiatry & Neurology Neurology
DX: E53.8 Deficiency of other specified B group vitamins (principal); E55.9 Vitamin D deficiency, unspecified; R51.9 Headache, unspecified

== ENCOUNTER 2025-02-16 08:54 | Inpatient (IN) | payer BC ==
[~2025-02-16] VITALS: Ht 165.1 cm; Wt 88.1 kg
[~2025-02-16 08:54] MED LIST changes: -IBUP-1022 PO; +IBUP600T42 PO
[2025-02-16] MEDS: KETOROLAC 30 MG/ML 1 ML VIAL IV ONE (10:54)
[2025-02-16] MEDS: LIDOCAINE 5% PATCH TD ONE (11:02)
[2025-02-16] MEDS: CYCLOBENZAPRINE 10 MG TABLET PO ONE (11:02)
[2025-02-16] MEDS: NS (Normal Saline) 0.9% 1,000 ML IV ONE (11:03)
[2025-02-16 11:19] LABS: BASO # 0.0 10^3/uL (0.0-0.2); BASO % 0.1 % (0.0-1.0); EOS # 0.1 10^3/uL (0.0-0.5); EOS % 0.3 % (0.0-3.0); LYMPH # 1.5 10^3/uL (1.5-5.0); LYMPH % 7.3 % (24.0-44.0); MONO # 1.0 10^3/uL (0.0-0.8); MONO % 5.1 % (2.0-8.0); NEUTROPHILS # 17.5 10^3/uL (1.5-8.5); NEUTROPHILS % 86.2 % (36.0-66.0); PLATELET COUNT, AUTOMATED 353 10^3/uL (150-450)
[2025-02-16] MEDS ORDERED: ISOVUE-370 76% 100 ML VIAL As Ordered ONE (11:38)
[2025-02-16 11:49] LABS: ALT/SGPT 47.0 U/L (7.0-40); AST/SGOT 28.0 U/L (<34)
[2025-02-16] MEDS: FLEET ENEMA PR STA (12:13)
[2025-02-16] MEDS: ONDANSETRON 4MG/2ML VIAL IV ONE (15:11)
[2025-02-16] MEDS: MORPHINE 4 MG/ML 1 ML VIAL IV ONE (15:11)
[2025-02-16] MEDS ORDERED: PROHANCE 279.3MG/ML 15ML VIAL As Ordered ONE (15:15)
[2025-02-16] MEDS ORDERED: PROHANCE 279.3MG/ML 5ML VIAL As Ordered ONE (15:15)
[2025-02-16] MEDS ORDERED: GASTROGRAFIN SOLUTION 30 ML As Ordered ONE (17:14)
[2025-02-16] MEDS: ACETAMINOPHEN *IV* 1,000 MG in IV 1 EA IV ONE (18:00)
[2025-02-16] MEDS: NS (Normal Saline) 0.9% 1,000 ML IV SCH (18:42)
[2025-02-16] MEDS: PIPERACILLIN/TAZOBACTAM SOD 3.375 GM in DEXTROSE 5% (D5W) ADV/MINI-BAG 50 ML IV ONE (18:42)
[2025-02-16 19:19] LABS: KETONE, URINE AUTO RFX 1+ mg/dL (NEGATIVE); LEUKOCYTE ESTERASE UR AUTO RFX NEGATIVE (NEGATIVE); MUCUS, URINE RFX SMALL (NEGATIVE); NITRITE, URINE AUTO RFX NEGATIVE (NEGATIVE); RBC, URINE AUTO RFX 2 /HPF (0-3); SQUAM EPITHELIAL CELL UR AURFX 3 /HPF (0-6); WBC, URINE AUTO RFX 1 /HPF (0-3)
[2025-02-16] MEDS ORDERED: HEPARIN DRIP 25,000 UNITS in IV 1 EA IV SCH (19:55)
[2025-02-16] MEDS ORDERED: HEPARIN SOD 5000 UNITS/ML 1 ML VIAL/SYRINGE IV PRN (19:55)
[2025-02-16] MEDS: MORPHINE 4 MG/ML 1 ML VIAL IV PRN (20:49)
[2025-02-16] MEDS: ENOXAPARIN 100 MG/1 ML SYRINGE (J1650 PER 10MG) SC ONE (20:49)
[2025-02-16] MEDS: NS (Normal Saline) 0.9% 1,000 ML in IV 1 EA IV ONE (20:50)
[2025-02-16 21:40] VITALS: BP 125/72; TEMP 99.1; O2SAT 98
[2025-02-16] MEDS: LR 1,000 ML IV SCH (22:02)
[2025-02-16] MEDS: DOCUSATE SODIUM 100 MG CAPSULE PO SCH (22:53)
[2025-02-16] MEDS: PIPERACILLIN/TAZOBACTAM SOD 3.375 GM in DEXTROSE 5% (D5W) ADV/MINI-BAG 50 ML IV SCH (23:00)
[2025-02-17] VITALS (11 sets, daily range): BP systolic 106–129; BP diastolic 52–77; TEMP 98.1–102; O2SAT 90–97
[2025-02-17] MEDS ORDERED: SEMA2.4P INJ (00:40)
[2025-02-17] MEDS ORDERED: CARV6.25 PO (00:40)
[2025-02-17] MEDS ORDERED: IMIT50TA PO (00:40)
[2025-02-17] MEDS ORDERED: ALPR0.25 PO (00:40)
[2025-02-17] MEDS ORDERED: ERGO500029 PO (00:40)
[2025-02-17] MEDS ORDERED: ACET-683 PO (00:43)
[2025-02-17] MEDS ORDERED: B-COTAB10 PO (00:43)
[2025-02-17] MEDS ORDERED: HOME MED LIST COMPLETE! XX SCH (00:45)
[2025-02-17] MEDS: ACETAMINOPHEN 500 MG TAB PO PRN (02:36)
[2025-02-17 06:33] LABS: PLATELET COUNT, AUTOMATED 326 10^3/uL (150-450)
[2025-02-17 07:03] LABS: ALT/SGPT 24 U/L (7.0-40); AST/SGOT 15 U/L (<34); CALCIUM LEVEL 7.2 MG/DL (8.5-10.1); CARBON DIOXIDE LEVEL 26 MMOL/L (20-31); CHLORIDE LEVEL 101 MMOL/L (98-107); CREATININE FOR GFR 0.58 MG/DL (0.55-1.30); GLOMERULAR FILTRATION RATE > 90.0 (>58); POTASSIUM SERUM 3.6 MMOL/L (3.5-5.1); SODIUM LEVEL 136 MMOL/L (136-145)
[2025-02-17 08:08] LABS: MAGNESIUM LEVEL 2.0 MG/DL (1.8-2.4)
[2025-02-17] MEDS: ENOXAPARIN 80 MG/0.8 ML SYRINGE (J1650 PER 10MG) SC SCH (08:10)
[2025-02-17 08:13] LABS: C REACTIVE PROTEIN QUANTITATIV 22.04 MG/DL (<1.0)
[2025-02-17] MEDS: MORPHINE 4 MG/ML 1 ML VIAL IV PRN (11:11)
[2025-02-17] MEDS: ONDANSETRON 4MG/2ML VIAL IV PRN (17:42)
[2025-02-18] MEDS: LACTULOSE 20 GM/30 ML SYRUP UDC PO PRN
[2025-02-18] MEDS: SENNA 8.6 MG TAB PO PRN
[2025-02-18] MEDS: MIRALAX *UNIT DOSE* 17 GM PACKET PO SCH (00:03)
[2025-02-18] MEDS: IBUPROFEN 400 MG TAB PO ONE (00:24)
[2025-02-18 04:05] VITALS: BP 129/61; TEMP 97.1; O2SAT 93
[2025-02-18 04:47] LABS: BASO # 0.0 10^3/uL (0.0-0.2); BASO % 0.2 % (0.0-1.0); EOS # 0.1 10^3/uL (0.0-0.5); EOS % 0.4 % (0.0-3.0); LYMPH # 1.9 10^3/uL (1.5-5.0); LYMPH % 15.7 % (24.0-44.0); MONO # 0.8 10^3/uL (0.0-0.8); MONO % 6.2 % (2.0-8.0); NEUTROPHILS # 9.5 10^3/uL (1.5-8.5); NEUTROPHILS % 76.7 % (36.0-66.0); PLATELET COUNT, AUTOMATED 323 10^3/uL (150-450)
[2025-02-18 05:27] LABS: ALT/SGPT 24 U/L (7.0-40); AST/SGOT 19 U/L (<34); C REACTIVE PROTEIN QUANTITATIV 21.58 MG/DL (<1.0); CALCIUM LEVEL 7.5 MG/DL (8.5-10.1); CARBON DIOXIDE LEVEL 29 MMOL/L (20-31); CHLORIDE LEVEL 100 MMOL/L (98-107); CREATININE FOR GFR 0.53 MG/DL (0.55-1.30); GLOMERULAR FILTRATION RATE > 90.0 (>58); POTASSIUM SERUM 3.8 MMOL/L (3.5-5.1); SODIUM LEVEL 137 MMOL/L (136-145)
[2025-02-18 08:35] VITALS: BP 127/68; TEMP 97.5; O2SAT 93
[2025-02-18 12:05] VITALS: BP 128/74; TEMP 97.6; O2SAT 93
[2025-02-18 15:39] VITALS: BP 131/70; TEMP 98.4; O2SAT 97
[2025-02-18 17:28] VITALS: BP 127/72; TEMP 97.7; O2SAT 97
[2025-02-18 19:36] VITALS: BP 124/72; TEMP 97.1; O2SAT 97
[2025-02-18] MEDS: LIDOCAINE 5% PATCH TD ONE (22:52)
[2025-02-19] VITALS (8 sets, daily range): BP systolic 117–138; BP diastolic 57–72; TEMP 97.5–101.6; O2SAT 91–97
[2025-02-19 04:59] LABS: PLATELET COUNT, AUTOMATED 333 10^3/uL (150-450)
[2025-02-19 08:07] LABS: LDH LACTATE DEHYDROGENASE 134.0 U/L (120-246)
[2025-02-19 08:08] LABS: CHOLESTEROL LEVEL 110.0 MG/DL (<200); CHOLESTEROL RISK RATIO 6.17 (<5); IRON (FE) 24.0 UG/DL (50-170); LDL CHOLESTEROL 69.2 MG/DL (<100); NON-HDL-C 92.2 MG/DL; PERCENT SATURATION 14.7 % (13.2-45.0); TRIGLYCERIDES LEVEL 115.0 MG/DL (<150)
[2025-02-20 03:21] VITALS: BP 130/73; TEMP 98.4; O2SAT 94
[2025-02-20 08:00] VITALS: BP 137/69; TEMP 97.9; O2SAT 96
[2025-02-20 08:01] LABS: BASO # 0.0 10^3/uL (0.0-0.2); BASO % 0.2 % (0.0-1.0); EOS # 0.1 10^3/uL (0.0-0.5); EOS % 0.9 % (0.0-3.0); LYMPH # 1.4 10^3/uL (1.5-5.0); LYMPH % 16.2 % (24.0-44.0); MONO # 0.6 10^3/uL (0.0-0.8); MONO % 6.9 % (2.0-8.0); NEUTROPHILS # 6.3 10^3/uL (1.5-8.5); NEUTROPHILS % 74.9 % (36.0-66.0); PLATELET COUNT, AUTOMATED 388 10^3/uL (150-450)
[2025-02-20 12:00] VITALS: BP 127/70; TEMP 97.1; O2SAT 94
[2025-02-20 15:51] VITALS: BP 128/77; TEMP 97.6; O2SAT 96
[2025-02-20] MEDS: cefTRIAXone SOD 2 GM in DEXTROSE 5% (D5W) ADV/MINI-BAG 50 ML IV SCH (18:05)
[2025-02-20 19:59] VITALS: BP 121/65; TEMP 98.9; O2SAT 95
[2025-02-20 23:36] VITALS: BP 132/62; TEMP 98.3; O2SAT 93
[2025-02-21 03:25] VITALS: BP 121/69; TEMP 97.6; O2SAT 95
[2025-02-21 07:40] VITALS: BP 129/66; TEMP 98.2; O2SAT 93
[2025-02-21] MEDS ORDERED: SODIUM CHLORIDE 0.9% INJ 10 ML SYR IV PRN (11:10)
[2025-02-21 11:44] VITALS: BP 128/77; TEMP 97.2; O2SAT 95
[2025-02-21] MEDS: SODIUM CHLORIDE 0.9% INJ 10 ML SYR IV SCH (13:03)
[2025-02-21] MEDS ORDERED: CEFT2INJ4 IV (13:12)
[2025-02-21] MEDS ORDERED: PERC5TAB12 PO (13:17)
[2025-02-21] MEDS ORDERED: SENO8.6T10 PO (13:19)
[2025-02-21] MEDS ORDERED: LACT20EL PO (13:19)
[2025-02-21] MEDS ORDERED: MILKSUS3 PO (13:19)
[2025-02-21] MEDS ORDERED: ELIQ5TAB PO (13:27)
[2025-02-21 14:27] LABS: INR 0.98
[2025-02-21 16:04] VITALS: BP 124/80; TEMP 97.6; O2SAT 95
[2025-02-21 19:28] VITALS: BP 130/71; TEMP 98.7; O2SAT 97
[2025-02-21 23:30] VITALS: BP 138/68; TEMP 98.5; O2SAT 96
[2025-02-22] VITALS (7 sets, daily range): BP systolic 112–154; BP diastolic 73–80; TEMP 96.7–98.4; O2SAT 95–97
[2025-02-22] MEDS: NS (Normal Saline) 0.9% 1,000 ML IV SCH (02:00)
[2025-02-22 04:26] LABS: PLATELET COUNT, AUTOMATED 453 10^3/uL (150-450)
[2025-02-22 05:18] LABS: HCG, SERUM QUALITATIVE NEGATIVE (NEGATIVE)
[2025-02-22] MEDS ORDERED: ACETAMINOPHEN 500 MG TAB PO PRN (11:00)
[2025-02-22] MEDS ORDERED: LIDOCAINE 2% 100 MG/5 ML SDV (FOR ANES.) As Ordered ONE (11:00)
[2025-02-22] MEDS ORDERED: NALOXONE INJ 0.4 MG/1 ML VIAL IV PRN (11:00)
[2025-02-22] MEDS ORDERED: ROCURONIUM BROMIDE 50MG/5ML VIAL As Ordered ONE (11:00)
[2025-02-22] MEDS ORDERED: MIDAZOLAM INJ 2 MG/2 ML VIAL As Ordered ONE (11:06)
[2025-02-22] MEDS ORDERED: ONDANSETRON 4MG/2ML VIAL As Ordered ONE (11:08)
[2025-02-22] MEDS ORDERED: dexAMETHasone 4 MG/ML 1 ML VIAL As Ordered ONE (11:08)
[2025-02-22] MEDS: HYDROmorphone HCL 2 MG/ML 1 ML VIAL IV ONE (11:24)
[2025-02-22 11:40] LABS: ALT/SGPT 22 U/L (7.0-40); AST/SGOT 22 U/L (<34); CALCIUM LEVEL 8.4 MG/DL (8.5-10.1); CARBON DIOXIDE LEVEL 26 MMOL/L (20-31); CHLORIDE LEVEL 101 MMOL/L (98-107); CREATININE FOR GFR 0.46 MG/DL (0.55-1.30); GLOMERULAR FILTRATION RATE > 90.0 (>58); POTASSIUM SERUM 4.5 MMOL/L (3.5-5.1); SODIUM LEVEL 136 MMOL/L (136-145)
[2025-02-22] MEDS ORDERED: ACETAMINOPHEN 1000MG/100ML IV BAG As Ordered ONE (12:49)
[2025-02-22] MEDS ORDERED: HYDROmorphone HCL 2 MG/ML 1 ML VIAL As Ordered ONE (12:49)
[2025-02-22] MEDS: LIDOCAINE W/EPINEPHrine 1% 20 ML VIAL As Ordered ONE (13:16)
[2025-02-22] MEDS: VANCOMYCIN 1000MG/20ML VIAL As Ordered ONE (13:44)
[2025-02-22] MEDS ORDERED: HYDROMORPHONE HCL 0.5 MG/0.5 ML SYRINGE IV PRN ×3 (15:00→16:25)
[2025-02-22] MEDS ORDERED: SUGAMMADEX SODIUM 200 MG/2 ML VIAL As Ordered ONE (15:58)
[2025-02-22] MEDS: methylPREDNISolone SUSP 40 MG/ML 1 ML VIAL As Ordered ONE (16:04)
[2025-02-22] MEDS ORDERED: ceFAZolin SODIUM 2 GM in DEXTROSE 5% (D5W) ADV/MINI-BAG 50 ML IV SCH (17:10)
[2025-02-22] MEDS: ACETAMINOPHEN 325 MG TAB PO SCH (19:51)
[2025-02-23 03:25] VITALS: BP 119/70; TEMP 98.7; O2SAT 98
[2025-02-23 05:11] LABS: PLATELET COUNT, AUTOMATED 528 10^3/uL (150-450)
[2025-02-23 05:32] LABS: CALCIUM LEVEL 8.3 MG/DL (8.5-10.1); CARBON DIOXIDE LEVEL 27 MMOL/L (20-31); CHLORIDE LEVEL 102 MMOL/L (98-107); CREATININE FOR GFR 0.50 MG/DL (0.55-1.30); GLOMERULAR FILTRATION RATE > 90.0 (>58); POTASSIUM SERUM 4.2 MMOL/L (3.5-5.1); SODIUM LEVEL 140 MMOL/L (136-145)
[2025-02-23 07:26] VITALS: BP 130/75; TEMP 97.6; O2SAT 99
[2025-02-23] MEDS: HEPARIN SOD 5000 UNITS/ML 1 ML VIAL/SYRINGE SQ SCH (09:00)
[2025-02-23] MEDS: PERCOCET 5MG/325MG TAB PO ONE (09:23)
[2025-02-23 13:37] VITALS: BP 119/59; TEMP 98.7; O2SAT 93
[2025-02-23] MEDS ORDERED: MORPHINE 2 MG/ML 1 ML VIAL IV PRN (16:00)
[2025-02-23 20:00] VITALS: BP 119/79; TEMP 98.8; O2SAT 95
[2025-02-23 20:21] VITALS: O2SAT 95
[2025-02-24] MEDS: CYCLOBENZAPRINE 10 MG TABLET PO PRN (02:14)
[2025-02-24 02:41] VITALS: BP 134/63; TEMP 99.9; O2SAT 96
[2025-02-24 12:00] VITALS: BP 106/59; TEMP 98.2; O2SAT 97
== END 2025-02-24 18:18 | disposition home health service (06) | DRG 710 ==
LOC: M ED 08:54 → M ED INP 20:51 → M PCU 21:38 → M MS4PR 02-23 13:33
PROVIDERS: ADMIT Specialist; ATTEND Specialist
PROC: B246ZZZ Ultrasonography of Right and Left Heart (ICD-10-PCS; 2025-02-17)
PROC: 0QB00ZZ Excision of Lumbar Vertebra, Open Approach (ICD-10-PCS; principal; 2025-02-22 09:30)
DX: A40.9 Streptococcal sepsis, unspecified (principal); G06.2 Extradural and subdural abscess, unspecified; J90 Pleural effusion, not elsewhere classified; K56.7 Ileus, unspecified; E88.09 Other disorders of plasma-protein metabolism, not elsewhere classified; I80.8 Phlebitis and thrombophlebitis of other sites; I25.2 Old myocardial infarction; G43.909 Migraine, unspecified, not intractable, without status migrainosus; Z88.2 Allergy status to sulfonamides; G89.29 Other chronic pain; D64.9 Anemia, unspecified; K59.09 Other constipation; J98.11 Atelectasis; E66.811 Obesity, class 1; I25.10 Atherosclerotic heart disease of native coronary artery without angina pectoris; M46.46 Discitis, unspecified, lumbar region; R00.0 Tachycardia, unspecified; Z68.33 Body mass index [BMI] 33.0-33.9, adult

== ENCOUNTER 2025-03-02 18:33 | Emergency (ER) | payer BC ==
[~2025-03-02] VITALS: Ht 170.2 cm; Wt 84.5 kg
[~2025-03-02 18:33] MED LIST changes: -VALI2TAB PO
[2025-03-02 18:37] VITALS: TEMP 99
[2025-03-02 21:03] LABS: BASO # 0.1 10^3/uL (0.0-0.2); BASO % 0.7 % (0.0-1.0); EOS # 0.1 10^3/uL (0.0-0.5); EOS % 1.0 % (0.0-3.0); LYMPH # 1.4 10^3/uL (1.5-5.0); LYMPH % 16.8 % (24.0-44.0); MONO # 0.4 10^3/uL (0.0-0.8); MONO % 4.8 % (2.0-8.0); NEUTROPHILS # 6.4 10^3/uL (1.5-8.5); NEUTROPHILS % 76.2 % (36.0-66.0); PLATELET COUNT, AUTOMATED 453 10^3/uL (150-450)
[2025-03-02 21:21] LABS: CALCIUM LEVEL 8.5 MG/DL (8.5-10.1); CARBON DIOXIDE LEVEL 27 MMOL/L (20-31); CHLORIDE LEVEL 102 MMOL/L (98-107); CREATININE FOR GFR 0.61 MG/DL (0.55-1.30); GLOMERULAR FILTRATION RATE > 90.0 (>58); MAGNESIUM LEVEL 1.9 MG/DL (1.8-2.4); POTASSIUM SERUM 5.4 MMOL/L (3.5-5.1); SODIUM LEVEL 140 MMOL/L (136-145)
[2025-03-02] MEDS ORDERED: VALI2TAB PO ×2 (22:51→22:54)
[2025-03-02 23:30] VITALS: BP 115/57; O2SAT 98
== END 2025-03-02 23:59 | disposition home or self-care (01) ==
LOC: M ED 18:33
DX: I80.02 Phlebitis and thrombophlebitis of superficial vessels of left lower extremity (principal); G43.909 Migraine, unspecified, not intractable, without status migrainosus; I25.2 Old myocardial infarction; Z86.718 Personal history of other venous thrombosis and embolism; Q44.6 Cystic disease of liver; D75.9 Disease of blood and blood-forming organs, unspecified; Z87.448 Personal history of other diseases of urinary system; M54.9 Dorsalgia, unspecified; F41.9 Anxiety disorder, unspecified; Z79.01 Long term (current) use of anticoagulants; Z79.899 Other long term (current) drug therapy; Z88.2 Allergy status to sulfonamides
CPT/HCPCS: 36589; 80048; 83735; 85025; 93971; 96374; 99284; J3360

== ENCOUNTER → 2025-03-02 | Outpatient (REF) | payer BC ==
[~2025-03-02] MED LIST changes: +ACET-683 PO; +ALPR0.25 PO; +B-COTAB10 PO; +CARV6.25 PO; +CEFT2INJ4 IV; +ELIQ5TAB PO; +ERGO500029 PO; +IMIT50TA PO; +LACT20EL PO; +MILKSUS3 PO; +PERC5TAB12 PO; +SEMA2.4P INJ; +SENO8.6T10 PO; +VALI2TAB PO
== END ==
LOC: M LAB REF 12:50
PROVIDERS: ATTEND Internal Medicine Infectious Disease
DX: G06.1 Intraspinal abscess and granuloma (principal)

== ENCOUNTER → 2025-03-03 | Outpatient (CLI) | payer BC ==
[~2025-03-03] MED LIST changes: +VALI2TAB PO
[2025-03-03 16:39] VITALS: BP_DIAS 93; TEMP 96.3; O2SAT 98
[2025-03-03] MEDS: LIDOCAINE 1% MDV 20 ML VIAL SC ONE (16:48)
[2025-03-03] MEDS: HEPARIN LOCK FLUSH 100 UNITS/ML 3 ML SYRINGE IV PRN (17:33)
== END ==
LOC: M IRPRO 15:58
PROVIDERS: ATTEND Radiology Diagnostic Radiology
DX: G06.1 Intraspinal abscess and granuloma (principal)
CPT/HCPCS: 36573; C1751

== ENCOUNTER → 2025-03-11 | Outpatient (REF) | payer BC, OTHER ==
[2025-03-11 12:32] LABS: BASO # 0.0 10^3/uL (0.0-0.2); BASO % 0.8 % (0.0-1.0); EOS # 0.2 10^3/uL (0.0-0.5); EOS % 4.0 % (0.0-3.0); LYMPH # 1.6 10^3/uL (1.5-5.0); LYMPH % 31.9 % (24.0-44.0); MONO # 0.3 10^3/uL (0.0-0.8); MONO % 6.5 % (2.0-8.0); NEUTROPHILS # 2.9 10^3/uL (1.5-8.5); NEUTROPHILS % 56.6 % (36.0-66.0); PLATELET COUNT, AUTOMATED 379 10^3/uL (150-450)
[2025-03-11 13:01] LABS: C REACTIVE PROTEIN QUANTITATIV 1.83 MG/DL (<1.0)
[2025-03-11 13:03] LABS: ALT/SGPT 10 U/L (7.0-40); AST/SGOT 17 U/L (<34); CALCIUM LEVEL 8.8 MG/DL (8.5-10.1); CARBON DIOXIDE LEVEL 27 MMOL/L (20-31); CHLORIDE LEVEL 102 MMOL/L (98-107); CREATININE FOR GFR 0.60 MG/DL (0.55-1.30); GLOMERULAR FILTRATION RATE > 90.0 (>58); POTASSIUM SERUM 4.4 MMOL/L (3.5-5.1); SODIUM LEVEL 139 MMOL/L (136-145)
== END ==
LOC: M SHH 11:50
PROVIDERS: ATTEND Internal Medicine Infectious Disease
DX: G06.1 Intraspinal abscess and granuloma (principal)

== ENCOUNTER → 2025-03-17 | Outpatient (REF) | payer BC, OTHER ==
[2025-03-17 12:39] LABS: BASO # 0.1 10^3/uL (0.0-0.2); BASO % 1.2 % (0.0-1.0); EOS # 0.2 10^3/uL (0.0-0.5); EOS % 3.0 % (0.0-3.0); LYMPH # 1.3 10^3/uL (1.5-5.0); LYMPH % 26.4 % (24.0-44.0); MONO # 0.5 10^3/uL (0.0-0.8); MONO % 9.3 % (2.0-8.0); NEUTROPHILS # 2.9 10^3/uL (1.5-8.5); NEUTROPHILS % 59.9 % (36.0-66.0); PLATELET COUNT, AUTOMATED 347 10^3/uL (150-450)
[2025-03-17 13:12] LABS: C REACTIVE PROTEIN QUANTITATIV < 0.50 MG/DL (<1.0)
[2025-03-17 13:44] LABS: ALT/SGPT < 9 U/L (7.0-40); AST/SGOT 14 U/L (<34); CALCIUM LEVEL 8.5 MG/DL (8.5-10.1); CARBON DIOXIDE LEVEL 27 MMOL/L (20-31); CHLORIDE LEVEL 105 MMOL/L (98-107); CREATININE FOR GFR 0.52 MG/DL (0.55-1.30); GLOMERULAR FILTRATION RATE > 90.0 (>58); POTASSIUM SERUM 4.3 MMOL/L (3.5-5.1); SODIUM LEVEL 140 MMOL/L (136-145)
== END ==
LOC: M SHH 12:08
PROVIDERS: ATTEND Internal Medicine Infectious Disease
DX: G06.1 Intraspinal abscess and granuloma (principal)

== ENCOUNTER → 2025-03-24 | Outpatient (REF) | payer BC, OTHER ==
[2025-03-24 15:12] LABS: BASO # 0.0 10^3/uL (0.0-0.2); BASO % 0.9 % (0.0-1.0); EOS # 0.2 10^3/uL (0.0-0.5); EOS % 4.2 % (0.0-3.0); LYMPH # 1.3 10^3/uL (1.5-5.0); LYMPH % 28.9 % (24.0-44.0); MONO # 0.4 10^3/uL (0.0-0.8); MONO % 9.3 % (2.0-8.0); NEUTROPHILS # 2.5 10^3/uL (1.5-8.5); NEUTROPHILS % 56.5 % (36.0-66.0); PLATELET COUNT, AUTOMATED 263 10^3/uL (150-450)
[2025-03-24 15:39] LABS: C REACTIVE PROTEIN QUANTITATIV 0.71 MG/DL (<1.0)
[2025-03-24 15:40] LABS: ALT/SGPT < 9 U/L (7.0-40); AST/SGOT 14 U/L (<34); CALCIUM LEVEL 8.6 MG/DL (8.5-10.1); CARBON DIOXIDE LEVEL 25 MMOL/L (20-31); CHLORIDE LEVEL 104 MMOL/L (98-107); CREATININE FOR GFR 0.58 MG/DL (0.55-1.30); GLOMERULAR FILTRATION RATE > 90.0 (>58); POTASSIUM SERUM 4.2 MMOL/L (3.5-5.1); SODIUM LEVEL 138 MMOL/L (136-145)
== END ==
LOC: M SHH 14:21
PROVIDERS: ATTEND Internal Medicine Infectious Disease
DX: G06.1 Intraspinal abscess and granuloma (principal)

== ENCOUNTER → 2025-03-31 | Outpatient (CLI) | payer BC ==
[~2025-03-31] MED LIST changes: +PROHANCE 279.3MG/ML 15ML VIAL ONE; +PROHANCE 279.3MG/ML 5ML VIAL ONE
== END ==
LOC: M PLAIMG 13:52
PROVIDERS: ATTEND Neurological Surgery
DX: G06.1 Intraspinal abscess and granuloma (principal)
CPT/HCPCS: 72158; A9579

== ENCOUNTER → 2025-04-01 | Outpatient (REF) | payer BC ==
[~2025-04-01] MED LIST changes: -PROHANCE 279.3MG/ML 15ML VIAL ONE; -PROHANCE 279.3MG/ML 5ML VIAL ONE
[2025-04-01 13:08] LABS: BASO # 0.0 10^3/uL (0.0-0.2); BASO % 1.1 % (0.0-1.0); EOS # 0.2 10^3/uL (0.0-0.5); EOS % 4.7 % (0.0-3.0); LYMPH # 1.2 10^3/uL (1.5-5.0); LYMPH % 33.7 % (24.0-44.0); MONO # 0.3 10^3/uL (0.0-0.8); MONO % 8.6 % (2.0-8.0); NEUTROPHILS # 1.9 10^3/uL (1.5-8.5); NEUTROPHILS % 51.9 % (36.0-66.0); PLATELET COUNT, AUTOMATED 261 10^3/uL (150-450)
[2025-04-01 13:24] LABS: C REACTIVE PROTEIN QUANTITATIV 0.92 MG/DL (<1.0)
[2025-04-01 13:25] LABS: ALT/SGPT < 9 U/L (7.0-40); AST/SGOT 15 U/L (<34); CALCIUM LEVEL 8.4 MG/DL (8.5-10.1); CARBON DIOXIDE LEVEL 27 MMOL/L (20-31); CHLORIDE LEVEL 105 MMOL/L (98-107); CREATININE FOR GFR 0.54 MG/DL (0.55-1.30); GLOMERULAR FILTRATION RATE > 90.0 (>58); POTASSIUM SERUM 4.0 MMOL/L (3.5-5.1); SODIUM LEVEL 140 MMOL/L (136-145)
== END ==
LOC: M SHH 12:46 → M LAB REF 12:46
PROVIDERS: ATTEND Internal Medicine Infectious Disease
DX: G06.1 Intraspinal abscess and granuloma (principal)

== ENCOUNTER → 2025-04-07 | Outpatient (REF) | payer BC ==
[2025-04-07 18:16] LABS: C REACTIVE PROTEIN QUANTITATIV 0.68 MG/DL (<1.0)
[2025-04-07 18:18] LABS: ALT/SGPT 11 U/L (7.0-40); AST/SGOT 18 U/L (<34); CALCIUM LEVEL 9.1 MG/DL (8.5-10.1); CARBON DIOXIDE LEVEL 28 MMOL/L (20-31); CHLORIDE LEVEL 102 MMOL/L (98-107); CREATININE FOR GFR 0.57 MG/DL (0.55-1.30); GLOMERULAR FILTRATION RATE > 90.0 (>58); POTASSIUM SERUM 4.1 MMOL/L (3.5-5.1); SODIUM LEVEL 138 MMOL/L (136-145)
[2025-04-07 18:34] LABS: BASO # 0.0 10^3/uL (0.0-0.2); BASO % 1.0 % (0.0-1.0); EOS # 0.2 10^3/uL (0.0-0.5); EOS % 4.7 % (0.0-3.0); LYMPH # 1.5 10^3/uL (1.5-5.0); LYMPH % 39.1 % (24.0-44.0); MONO # 0.3 10^3/uL (0.0-0.8); MONO % 7.3 % (2.0-8.0); NEUTROPHILS # 1.8 10^3/uL (1.5-8.5); NEUTROPHILS % 47.6 % (36.0-66.0); PLATELET COUNT, AUTOMATED 302 10^3/uL (150-450)
== END ==
LOC: M SHH 17:18
PROVIDERS: ATTEND Internal Medicine Infectious Disease
DX: G06.1 Intraspinal abscess and granuloma (principal)